=== PATIENT | male | born 1955 | race Caucasian/White ===

== ENCOUNTER 2021-09-01 11:32 | Emergency (ER) | payer OTHER ==
[~2021-09-01] VITALS: Ht 170.1 cm; Wt 57.6 kg
[2021-09-01] MEDS ORDERED: APRESOLINE25 MG PO (11:46)
[2021-09-01] MEDS ORDERED: PRAVASTATIN SOD20 MG PO (11:46)
[2021-09-01] MEDS ORDERED: IMDUR SA30 MG PO (11:47)
[2021-09-01] MEDS ORDERED: DULOXETINE HCL20 MG PO (11:51)
[2021-09-01] MEDS ORDERED: CLONAZEPAM0.5 M2 PO (11:51)
[2021-09-01] MEDS ORDERED: ZANAFLEX4 MG PO (12:11)
[2021-09-01] MEDS ORDERED: NAPROSYN500 MG PO (12:11)
[2021-09-01] MEDS ORDERED: MEDROL DOSEPAK4 MG PO (12:11)
== END 2021-09-01 12:13 | disposition home or self-care (01) ==
LOC: ED 11:32
DX: M54.50 Low back pain, unspecified (principal)